=== PATIENT | female | born 1960 | race African-American/Black ===

== ENCOUNTER 2016-07-14 23:43 | Inpatient (IN) | payer OTHER ==
--- NOTE | ~2016-07-14 | CT105 ---
[facility] A Service of [facility] RADIOLOGY TEXT RESULTS PATIENT: JOSÉ MIGUEL VALLE LOCATION: [facility] : 62 UNIT #: [id number] AGE: [address]: GASTON CALDERON APRN SEX: F ORDER DR: [id number] [place] [id number] [facility]. [place], [place] [address] [id number] MR#: [id number] Acc #: [id number] NAME: JOSÉ MIGUEL VALLE : 1960 SEX: F STUDY DATE/TIME: 07/15/2016 2:13 UNIT: [facility] ROOM: STUDY DESCRIPTION: CT Pelvis W Cont Attending Physician: Gaston Calderon Aprn Ordering Physician: Gaston Calderon Aprn Primary Care Physician: Laura Pineda M.D. MEDICAL IMAGING REPORT This report is preliminary unless electronic signature is present EXAM Pelvic CT with contrast, 07/15/2016 INDICATION 55-year-old female with complaint of an abscess on the left buttock inferiorly for a week. Pain symptoms. TECHNIQUE Contrast enhanced CT of the pelvis was performed. We have no comparisons. This CT exam was performed with one or more of the following radiation dose reduction techniques: automatic exposure control, adjustment of mA and/or kV according to patient size, and iterative reconstruction. FINDINGS CT PELVIS: Aorta unremarkable. Bladder unremarkable. No adnexal mass or drainable fluid collection in the pelvis. No free fluid. Included bowel and appendix unremarkable. There is no inguinal adenopathy or fluid collection. There is induration of the subcutaneous fat of the left buttock region. There is no associated drainable fluid collection. The inflammatory changes extend over a transverse distance of about 7 cm and a craniocaudal distance of about 12.6 cm, best demonstrated on the coronal reformats. A fish oil capsule indents the scan at the level of concern on the left. No subcutaneous air identified. There are degenerative changes in the lumbosacral spine. No suspicious bone lesion. IMPRESSION 1. Inflammatory change of the subcutaneous fat of the left buttock in [facility] A Service [facility] RADIOLOGY TEXT RESULTS PATIENT: JOSÉ MIGUEL VALLE LOCATION: [facility] : [birth year] UNIT #: [id number] AGE: [address]: GASTON CALDERON APRN SEX: F ORDER DR: the area palpable concern. This extends over a distance of about 7 cm transverse x 12.6 cm craniocaudal. There is no drainable fluid collection or subcutaneous air present however. Imaging features may reflect cellulitis. 2. Imaging of the pelvis is otherwise negative, the appendix is normal. No adnexal mass or drainable fluid collection in the pelvis. Dictated by... Cabrera Diop M.D. THIS IS AN ELECTRONICALLY VERIFIED REPORT Cabrera Diop M.D. at 07/15/2016 6:24 AM URSULA/gelacio TD: 07/15/2016 05:31 JOB #: [id number] MEDICAL IMAGING REPORT Page 1 of 1 COPY
--- NOTE | ~2016-07-14 | CO ---
Unit #: [id number] #: [id number] Patient: JOSÉ MIGUEL GAY [id number] [address] [place], [place] [address] [id number] MR#: [id number] NAME: JOSÉ MIGUEL GAY ROOM: 219 Age: 55 Sex: F Admission Date: 07/15/2016 : 1960 Attending Physician: Farhan Holder M.D. Primary Care Physician: Laura Pineda M.D. CONSULTATION REPORT HISTORY OF PRESENT ILLNESS Ms. Gay is a 55-year-old female with diabetes mellitus and morbid obesity who presents with a painful left buttock and fever. She was noted on exam to have significant cellulitis and was admitted and started on antibiotics. CT scan was consistent with cellulitis and no drainable fluid collection was noted but when I saw the patient on examination I could express purulent drainage. I took cultures and they have been sent to the laboratory. She denied any trauma to the area. She has not had any needle sticks or injections in this area. PAST MEDICAL HISTORY 1. Diabetes. 2. Hypertension. 3. Morbid obesity. 4. Degenerative joint disease, status post bilateral knee replacement. 5. Corneal transplant. ALLERGIES Aspirin. MEDICATIONS Include: 1. Metformin. 2. Hydrochlorothiazide. 3. Atenolol. 4. Lisinopril. 5. Ferrous sulfate. SOCIAL HISTORY Denies use of tobacco. She is a social alcohol drinker. Lives at home with family. FAMILY HISTORY She is unaware of any chronic or inheritable diseases. REVIEW OF SYSTEMS Otherwise, unremarkable. PHYSICAL EXAMINATION VITAL SIGNS: Currently, she is 98.7, pulse 80 and regular, respirations 18, blood pressure 109/65. GENERAL: Awake, alert, and oriented. HEENT: Unremarkable. LUNGS: Clear. Unit #: [id number] #: [id number] Patient: JOSÉ MIGUEL GAY HEART: Regular rate and rhythm. ABDOMEN: Soft. BUTTOCKS: She has extensive induration and erythema of the buttocks and through the central part, there is a small area where spontaneous purulent drainage can be expressed. EXTREMITIES: No edema. NEUROLOGIC: Grossly intact. SKIN: No other skin rashes or lesions. DIAGNOSTIC STUDIES LABORATORY: Basic metabolic panel is unremarkable except for a glucose of 208. Hemoglobin is 11.1, white count 20,500, platelets 224,000. IMAGING: CT scan, as discussed. ASSESSMENT AND PLAN Abscess left buttocks with associated cellulitis. She has already been started on appropriate antibiotics. She needs operative incision and drainage to facilitate adequate decompression of the abscess and allow treatment of the cellulitis. I have discussed the procedure with the patient including risks, benefits, and complications. She understands and agrees to proceed. Dictated by... Mulu Patel/natanael TD: 07/15/2016 23:11 JOB #: [id number] CONSULTATION REPORT Page 1 of 1 X Brian Villanueva MD X CONSULTATION REPORT
--- NOTE | ~2016-07-14 | BMI ---
[facility] Nutrition Therapy DATE: 07/16/16 Patient: JOSÉ MIGUEL VALLE Physician: NENITA Address: [address] [place] [address] Room/Bed: [address] [place] [address], Zip: [place] [address] Admit Date: 07/15/16 Date of : [birth year] Height: 5 6 Weight: 369 167.8 HIGH BMI NOTE: DX: 55 Y.O. FEMALE ADMITTED FOR BOIL ON (L) CHEEK ANTHROPOMETRICS: 5'6", WT: 369# (168 KG), BMI: 59.6 DIET: CC INTERVENTION: 1. CC DIET RECOMMENDATIONS: 1. RECOMMEND TO ADD HH TO CURRENT DIET ORDER ABOVE TO PROMOTE GRADUAL WEIGHT LOSS TOWARDS HEALTHY BMI (19.0-25.0) OR +/-10%IBW RD WILL F/U PER PROTOCOL Respectfully, ANN GORDON MS, RD, LD Food and Nutritional Services [facility] cc: client file
--- NOTE | ~2016-07-14 | OR ---
Unit #: [id number] #: [id number] Patient: JOSÉ MIGUEL GAY [id number] [address] [place], [place] [address] [id number] I MR#: [id number] NAME: JOSÉ MIGUEL GAY ROOM: 219 Date of Procedure: 07/15/2016 Admission Date: 07/15/2016 Surgeon: Brian Villanueva M.D. : 1960 Attending Physician: Farhan Holder M.D. Primary Care Physician: Laura Pineda M.D. OPERATIVE REPORT PREOPERATIVE DIAGNOSIS Abscess, left buttock. POSTOPERATIVE DIAGNOSIS Abscess, left buttock. PROCEDURE PERFORMED Incision and drainage of left buttock abscess. ANESTHESIA General endotracheal anesthesia. ESTIMATED BLOOD LOSS Less than 20 mL. INDICATIONS FOR PROCEDURE Ms. Gay is a 55-year-old female with diabetes, morbid obesity, who presented in the ER with a painful left buttock. On examination, she was found to have cellulitis, but to my examination, I could express gross purulent drainage. She was brought to the operating room for incision and drainage. DESCRIPTION OF PROCEDURE The patient was transported from the emergency room to the operating room, and after induction of general endotracheal anesthesia, she was placed in the left lateral position and secured with appropriate padding, axillary roll, and beanbag. She was then prepped and draped in usual sterile fashion. A vertical incision was made over the fluctuant area and a large amount of grossly purulent drainage was returned. I digitalized the abscess cavity and broke down all loculations and copiously irrigated the abscess cavity until there was no further purulent drainage. The abscess cavity was packed with Kerlix soaked in Betadine. The packing was held in place with some #1 Vicryl stay sutures. Dry sterile dressing was placed. Sponges and needle counts were correct x3. The patient tolerated the procedure well and was transported to recovery in stable condition. Findings were discussed with her . She will be readmitted to her hospital room for IV antibiotics and tomorrow we will initiate dressing changes. Dictated by... Brian Villanueva M.D. Unit #: [id number] #: [id number] Patient: JOSÉ MIGUEL GAY RS/modl TD: 07/16/2016 02:18 JOB #: [id number] OPERATIVE REPORT Page 1 of 1 X Brian Villanueva MD PROCEDURE OPERATIVE NOTE
--- NOTE | ~2016-07-14 | HP ---
Unit #: [id number] #: [id number] Patient: JOSÉ MIGUEL VALLE [id number] [address] [place], [place] [address] [id number] MR#: [id number] NAME: JOSÉ MIGUEL VALLE ROOM: Age: 55 Sex: F Admission Date: 07/14/2016 : 1960 Attending Physician: Gaston Calderon Aprn Primary Care Physician: Laura Pineda M.D. HISTORY AND PHYSICAL CHIEF COMPLAINT Large area of cellulitis over the left buttocks. HISTORY This pleasant 55-year-old female with hypertension, AODM, DJD, is admitted for cellulitis over the left buttocks. The patient was well until one week prior to admission when she developed pain over the left buttocks. A few days ago developed chills, sweats, nausea and vomiting. She presented to this emergency department late last evening with a temperature of 101.7. On examination, she has significant induration of the entire left buttocks. No definite fluctuance that I can palpate. A CT scan was most consistent with cellulitis, and no drainable fluid collection was noted. A urinalysis was performed and does show significant pyuria but was a poor specimen, as it does show many squamous cells. In the ER, the patient was bolused with 1 L saline, given Toradol, 2 g of vancomycin, Tylenol, and 1 g of Rocephin. PAST MEDICAL HISTORY 1. AODM. 2. Hypertension. 3. DJD. 4. Bilateral total knee replacements. 5. Corneal transplant. ALLERGIES Aspirin causes jitteriness. HOME MEDICATIONS 1. Metformin 1,000 mg b.i.d. 2. Hydrochlorothiazide 25 mg daily 3. Atenolol 25 mg daily 4. Possibly lisinopril 20 mg daily 5. Iron FAMILY HISTORY Negative for diabetes and CAD. SOCIAL HISTORY The patient lives with her . Seldom drinks alcohol, is a lifelong nonsmoker. REVIEW OF SYSTEMS Notable for pain over the left buttocks with some chills, sweats, Unit #: [id number] #: [id number] Patient: JOSÉ MIGUEL VALLE diabetes, hypertension, DJD and above-mentioned surgeries. All other systems were reviewed and are negative. PHYSICAL EXAMINATION GENERAL: Pleasant, morbidly obese 55-year-old female currently in no acute distress. VITAL SIGNS: Temperature 101.7, pulse 99, respirations 16, blood pressure 136/85, O2 saturation 100% on room air. HEENT EXAMINATION: Eyes PERRLA. Extraocular muscles are intact. Pharynx is benign. NECK: Supple without adenopathy or thyromegaly. CHEST: Clear. CARDIAC: Normal S1, S2 without S3, S4 or murmur. ABDOMEN: Bowel sounds are present. No hepatosplenomegaly, tenderness or masses. EXTREMITIES: Without clubbing, cyanosis or edema. Pedal pulses are present. No ulcers on the feet. INTEGUMENT: Buttocks reveals a large area of induration over the entire left buttocks. No area of fluctuance. NEUROLOGIC EXAM: Patient is awake, alert, oriented. Cranial nerves are intact. Equal strength throughout. DIAGNOSTIC STUDIES ADMISSION LABORATORY: Hematocrit 36, white blood count 20.5, normal platelet count, MCV is low at 77. SMA-7: Glucose 208, sodium 131, chloride 97, normal lactic acid level. FLU SEROLOGY: Negative. URINALYSIS: Positive leukocyte esterase, protein, glucose with 100-200 white cells, 4+ bacteria. However, many squamous epithelial cells are also noted. IMAGING: CT scan of the abdomen and pelvis shows what looks to be most consistent with cellulitis over the left buttocks without definite fluid collection. ASSESSMENT 1. Large area of cellulitis over the left buttocks. 2. Pyuria, rule out urinary tract infection versus poor collection. 3. Adult-onset diabetes mellitus. 4. Hypertension. 5. History of iron-deficiency anemia. 6. Degenerative joint disease. 7. Morbid obesity. PLANS 1. Patient received vancomycin and Rocephin. I will order Zyvox and Rocephin given the patient is morbidly obese and it will be difficult to dose her vancomycin. 2. Obtain straight-cath urinalysis. 3. DVT prophylaxis. 4. Sliding-scale insulin. 5. Verify home medicines but will hold HCTZ and metformin for now. 6. [facility] to see to rule out abscess. Unit #: [id number] #: [id number] Patient: JOSÉ MIGUEL VALLE Dictated by Elizabeth Espinoza M.D. AML/psc TD: 07/15/2016 04:06 JOB #: [id number] HISTORY AND PHYSICAL Page 1 of 1 X Elizabeth Espinoza MD HISTORY AND PHYSICAL
--- NOTE | ~2016-07-14 | DS ---
Unit #: [id number] #: [id number] Patient: JOSÉ MIGUEL VALLE [id number] [address] [address] [id number] I MR#: [id number] NAME: JOSÉ MIGUEL VALLE ROOM: 219 Age: 55 Sex: F Admission Date: 07/15/2016 : 1960 Discharge Date: 07/17/2016 Attending Physician: Farhan Holder M.D. Primary Care Physician: Laura Pineda M.D. DISCHARGE SUMMARY DISCHARGE DIAGNOSES 1. Methicillin-resistant Staphylococcus aureus cellulitis and abscess of the left buttock. 2. Type 2 diabetes. 3. Hypertension. 4. Morbid obesity. HOSPITAL COURSE The patient is a 55-year-old female, [facility] week history of left buttock pain. Ultimately, she developed chills, night sweats, nausea, and vomiting. She was started on IV antibiotics and seen by Surgery. The patient was taken for I and D of the left buttock abscess. Ultimately, wound cultures have grown MRSA which is resistant to Levaquin and penicillins. The patient feels well and has been fever free for several days. She is being discharged home on Bactrim. FOLLOWUP The patient should follow up with Dr. Villanueva in 1 to 2 weeks. Additionally, she is being discharged with home health for wound care. Dictated by... Farhan Holder M.D. SRINIVAS/terrance TD: 07/17/2016 23:43 JOB #: [id number] DISCHARGE SUMMARY Page 1 of 1 X Farhan Holder MD X DISCHARGE SUMMARY
--- NOTE | ~2016-07-14 | EKG ---
PATIENT: JOSÉ MIGUEL VALLE UNIT #: [id number] Ventricular Rate: 86 BPM Atrial Rate: 86 BPM P-R Interval: 160 ms QRS Duration: 94 ms Q-T Interval: 384 ms QTC Calculation(Bezet): 459 ms P [place]: 53 degrees Calculated R [place]: 2 degrees Calculated T [place]: 22 degrees Diagnosis Line: Suspect unspecified pacemaker failure Diagnosis Line: Normal sinus rhythm Diagnosis Line: Cannot rule out Anterior infarct , age Diagnosis Line: undetermined Diagnosis Line: Abnormal ECG Possible Motion artifact Diagnosis Line: No previous ECGs available Diagnosis Line: Confirmed by KATTY GARCIA MD ([id number]) on 07/16/2016 Diagnosis Line: 3:30:01 PM INTERPRETING MD: JOSE JUAN
[~2016-07-14 23:43] MED LIST: ULTRAM PO
[2016-07-15 00:40] LABS: URINE APPEARANCE TURBID; URINE BLOOD NEG (NEG); URINE COLOR DK YELLOW; URINE GLUCOSE 100 MG/DL (NEG); URINE KETONE TRACE (NEG); URINE LEUKOCYTE ESTERASE 2+ (NEG); URINE NITRATE NEG (NEG); URINE PROTEIN 2+ (NEG); URINE SPECIFIC GRAVITY 1.034 (1.003-1.035)
[2016-07-15 00:41] LABS: CULTURE INDICATED? YES; URINE BACTERIA AUWI 4+ (NEGATIVE); URINE SQUAMOUS EPITHELIAL CELL MANY /[HPF]; UWBCS1 AUWI 100-200 (0-5)
[2016-07-15 00:52] LABS: U HYALINE CASTS AUWI 0-2 /[LPF]; URBCS1 AUWI 0-2 /[HPF] (0-2); URINE GRANULAR CAST 0-2 /[HPF]
[2016-07-15 00:55] LABS: URINE BILIRUBIN NEG (NEG)
[2016-07-15 01:22] LABS: BASOPHIL# 0.1 X10e3 (0-0.3); BASOPHIL% 0.3 % (0-2.5); EOSINOPHIL% 0.1 % (0.0-7.0); HEMATOCRIT 36.1 % (35.0-45.0); HEMOGLOBIN 11.1 gm/dL (12.0-16.0); LYMPHOCYTE# 2.8 X10e3 (1.0-3.5); LYMPHOCYTE% 13.6 % (17.0-45.0); MEAN CELL VOLUME 72.3 FL (83-96); MEAN CORPUSCULAR HEMOGLOBIN 22.3 PG (28-34); MEAN CORPUSCULAR HGB CONC 30.9 g/dL (30-36); MEAN PLATELET VOLUME 9.9 FL (6.5-11.5); MONOCYTE# 1.9 X10e3 (0-1.0); MONOCYTE% 9.1 % (3.0-12.0); NEUTROPHIL# 15.7 X10e3 (1.5-7.1); NEUTROPHIL% 76.9 % (40-75); PLATELET COUNT 224 X10e3 (140-420); RED BLOOD COUNT 4.99 X10e (3.90-5.30); RED CELL DISTRIBUTION WIDTH 15.3 % (11.0-15.5); WHITE BLOOD COUNT 20.5 X10e3 (4.0-10.5)
[2016-07-15 01:25] LABS: DIFF IND YES
[2016-07-15 01:39] LABS: INFLUENZA A NEG (NEG); INFLUENZA B NEG (NEG)
[2016-07-15 01:44] LABS: BUN/CREATININE RATIO 13.84; CALCIUM SERUM 8.6 mg/dL (8.4-10.2); CREATININE SERUM 1.3 mg/dL (0.6-1.4); GLOM FILT RATE Estimated 53.9 mL/min (>60); POTASSIUM 3.8 mmol/L (3.5-5.1)
[2016-07-15 01:46] LABS: ANISOCYTOSIS SL; MICROCYTOSIS MOD; PLATELET ESTIMATE NORMAL (NORMAL)
[2016-07-15 01:47] LABS: SMUDGE CELLS 2 /100
[2016-07-15] MEDS ORDERED: LISINOPRIL-HCTZ1 T15 PO (08:28)
[2016-07-15] MEDS ORDERED: METFORMIN HCL1000 M1 PO (08:28)
[2016-07-15] MEDS ORDERED: TENORMIN50 MG PO (08:29)
[2016-07-15] MEDS ORDERED: VERAPAMIL SR240 MG PO (08:29)
[2016-07-15] MEDS ORDERED: FEROSUL325 ( 651 PO (08:30)
[2016-07-15 09:26] LABS: URINE SOURCE CATH
[2016-07-15 09:44] LABS: URINE APPEARANCE CLEAR; URINE BLOOD NEG (NEG); URINE COLOR DK YELLOW; URINE GLUCOSE NEG (NEG); URINE KETONE NEG (NEG); URINE LEUKOCYTE ESTERASE NEG (NEG); URINE NITRATE NEG (NEG); URINE PROTEIN 1+ (NEG); URINE SPECIFIC GRAVITY 1.064 (1.003-1.035)
[2016-07-15 09:47] LABS: URBCS1 AUWI 0-2 /[HPF] (0-2); URINE BACTERIA AUWI NEG (NEGATIVE); URINE SQUAMOUS EPITHELIAL CELL FEW /[HPF]; UWBCS1 AUWI 0-2 (0-5)
[2016-07-15 10:25] LABS: CULTURE INDICATED? NO; URINE BILIRUBIN NEG (NEG); URINE MUCUS PRESENT
[2016-07-16 06:14] LABS: BUN/CREATININE RATIO 17.77; CALCIUM SERUM 7.7 mg/dL (8.4-10.2); CREATININE SERUM 0.9 mg/dL (0.6-1.4); GLOM FILT RATE Estimated 84.1 mL/min (>60); POTASSIUM 3.8 mmol/L (3.5-5.1)
[2016-07-16 08:15] LABS: HEMATOCRIT 32.7 % (35.0-45.0); HEMOGLOBIN 10.1 gm/dL (12.0-16.0); MEAN CELL VOLUME 71.8 FL (83-96); MEAN CORPUSCULAR HEMOGLOBIN 22.1 PG (28-34); MEAN CORPUSCULAR HGB CONC 30.8 g/dL (30-36); MEAN PLATELET VOLUME 9.7 FL (6.5-11.5); RED BLOOD COUNT 4.55 X10e (3.90-5.30); RED CELL DISTRIBUTION WIDTH 15.2 % (11.0-15.5); WHITE BLOOD COUNT 19.1 X10e3 (4.0-10.5)
[2016-07-17] MEDS ORDERED: HYDROCODONE/APA1 T16 PO (10:38)
[2016-07-17] MEDS ORDERED: BACTRIM DS TABL1 TA1 PO (10:39)
== END 2016-07-17 11:25 | disposition home health service (06) | DRG 603 ==
LOC: CED 23:43 → CEDOF 07-15 03:30 → C2A 07-15 13:49
PROVIDERS: Internal Medicine; Nurse Practitioner Family; Specialist
PROC: 0H98XZZ Drainage of Buttock Skin, External Approach (ICD-10-PCS; principal; 2016-07-15 11:30)
DX: L03.317 Cellulitis of buttock (principal); I10 Essential (primary) hypertension; Z68.43 Body mass index [BMI] 50.0-59.9, adult; B95.62 Methicillin resistant Staphylococcus aureus infection as the cause of diseases classified elsewhere; E11.9 Type 2 diabetes mellitus without complications; N39.0 Urinary tract infection, site not specified; L02.31 Cutaneous abscess of buttock; Z79.84 Long term (current) use of oral hypoglycemic drugs; E66.01 Morbid (severe) obesity due to excess calories; M19.90 Unspecified osteoarthritis, unspecified site; Z96.653 Presence of artificial knee joint, bilateral; Z88.6 Allergy status to analgesic agent
CPT/HCPCS: 36415; 72193; 80048; 81003; 82947; 83605; 84703; 85025; 85027; 87040; 87070; 87077; 87086; 87186; 87205; 87804; 93005; 96361; 96374; 99285; J0696; J1650; J1815; J1885; J2020; J2250; J2543; J2765; J3010; J3370; Q9967